=== PATIENT | female | born 1990 | race American Indian/Alaskan Native ===

== ENCOUNTER 2016-12-29 12:34 | Emergency (ER) | payer SELFPAY ==
[2016-12-29 12:47] VITALS: BP 131/93
[2016-12-29 14:44] LABS: Bacteria,Urine 2+ /HPF (Negative); Bilirubin,Urine NEG (Negative); Blood,Urine LG (Negative); Ketones,Urine TR mg/dL (Negative); Leukocyte Esterase,Urine MOD (Negative); Mucus,Urine 3+ /HPF; Nitrite,Urine NEG (Negative); Urobilinogen,Urine < 2.0 mg/dL (<2.0)
[2016-12-29 14:45] LABS: RBC,Urine > 182.0 /HPF (0.0-6.0)
[2016-12-29 14:46] LABS: WBC,Urine > 182.0 /HPF (0.0-6.0)
[2016-12-29] MEDS ORDERED: ZITHROMAX PO ONE (15:09)
[2016-12-29] MEDS ORDERED: MACROBID PO ONE (15:09)
[2016-12-29] MEDS ORDERED: XYLOCAINE 1% MPF 5 mL INFILTRATI ONE (15:09)
[2016-12-29] MEDS ORDERED: ROCEPHIN IM ONE (15:09)
--- NOTE | 2016-12-29 15:14 | Emergency Department Report ---
HPI - General Chief Complaint: Urogenital-Female Time Seen by Provider: 12/29/16 15:08 - HPI HPI: This is a 26-year-old Afro-[place] female presents to the emergency department from home with complaint of burning with urination, frequent urination and some trouble with urination. She also is concerned that she got a call from her boyfriend today saying that he was diagnosed with urethritis and that she could' ve gotten something from him. She denies any history of STDs. She denies any vaginal discharge. She is having some vaginal bleeding but is in the middle of her menstrual cycle. She denies any past medical history. She is not taken anything for symptoms prior to presentation. No recent travel or sick contacts at home. ED Past Medical Hx - Past Medical History Previous Medical History?: No - Surgical History Past Surgical History?: No - Social History Smoking Status: Current Every Day Smoker Substance Use Type: Alcohol, Marijuana - Medications Home Medications: Home Medications Medication Instructions Recorded Confirmed Last Taken Type Albuterol Sulfate [Ventolin HFA] 2 puff IH Q4H PRN 12/29/16 12/29/16 Unknown History Nitrofurantoin [place]/M-Cryst 100 mg PO Q12HR #14 capsule 12/29/16 Unknown Rx [Macrobid CAP] ED Review of Systems ROS: Stated complaint: FREQ URINATION Other details as noted in HPI Comment: All other systems reviewed and negative Constitutional: denies: chills, fever Eyes: denies: eye pain, eye discharge, vision change ENT: denies: ear pain, throat pain Respiratory: denies: cough, shortness of breath, wheezing Cardiovascular: denies: chest pain, palpitations Gastrointestinal: denies: abdominal pain, nausea, diarrhea Genitourinary: urgency, dysuria, frequency. denies: discharge Musculoskeletal: denies: back pain, joint swelling, arthralgia Skin: denies: rash, lesions Neurological: denies: headache, weakness, paresthesias Physical Exam - Physical Exam Vital Signs: Vital Signs 12/29/16 12:43 Temperature 98 F Pulse Rate 96 H Respiratory 18 Rate Blood Pressure 131/93 O2 Sat by Pulse 100 Oximetry Physical Exam: GENERAL: The patient is well-developed well-nourished. HEENT: Normocephalic. Atraumatic. Extraocular motions are intact. Patient has moist mucous membranes. NECK: Supple. Trachea is midline. CHEST/LUNGS: Clear to auscultation. There is no respiratory distress noted. HEART/CARDIOVASCULAR: Regular. There is no tachycardia. There is no gallop rub or murmur. ABDOMEN: Abdomen is soft, nontender. Patient has normal bowel sounds. There is no abdominal distention. SKIN: There is no rash. There is no edema. There is no diaphoresis. NEURO: The patient is awake, alert, and oriented. The patient is cooperative. The patient has no focal neurologic deficits. The patient has normal speech. MUSCULOSKELETAL: There is no tenderness or deformity. There is no limitation range of motion. There is no evidence of acute injury. ED Course Vital Signs 12/29/16 12:43 Temperature 98 F Pulse Rate 96 H Respiratory 18 Rate Blood Pressure 131/93 O2 Sat by Pulse 100 Oximetry ED Medical Decision Making - Medical Decision Making 26-year-old female presents with some dysuria and urinalysis does show a significant urinary tract infection. There is a large amount of hematuria. The patient is also in the midst of her menstrual cycle. The patient denies any vaginal discharge or pelvic pain or lesions but did get a call from her sexual partner saying that he was diagnosed with urethritis. The way she describes it, her partner was tested for gonorrhea and chlamydia. For this reason the patient will be treated with Rocephin and azithromycin to cover her for both gonorrhea and chlamydia. This patient is not having any discharge and is having bleeding from her menstrual cycle, a pelvic exam will not be helpful at this time. She will be empirically treated. - Differential Diagnosis gonorrhea, chlamydia, UTI, Critical Care Time: No Critical care attestation.: If time is entered above; I have spent that time in minutes in the direct care of this critically ill patient, excluding procedure time. ED Disposition Clinical Impression: Possible exposure to STD UTI (urinary tract infection) Qualifiers: Urinary tract infection type: acute cystitis Hematuria presence: with hematuria Qualified Code(s): N30.01 - Acute cystitis with hematuria Disposition: DISCHARGED TO HOME OR SELFCARE Is pt being admited?: No Condition: Stable Instructions: Urinary Tract Infection in Women (ED), Safe Sex (ED) Additional Instructions: Please follow-up with a primary care doctor and [employer] [facility] in the next few days. Return to the emergency department with any worsening of your symptoms or any acute distress. Prescriptions: Nitrofurantoin Hocking/M-Cryst [Macrobid CAP] 100 mg PO Q12HR #14 capsule Referrals: PRIMARY CARE,MD [Primary Care Provider] - 3-5 Days [facility] [Outside] - 3-5 Days Time of Disposition: 15:14
== END 2016-12-29 16:05 | disposition home or self-care (01) ==
LOC: ED 12:34
DX: N30.01 Acute cystitis with hematuria (principal); F17.200 Nicotine dependence, unspecified, uncomplicated; F12.10 Cannabis abuse, uncomplicated
CPT/HCPCS: 81001; 81025; 96372; 99282; J0696

== ENCOUNTER 2021-02-21 05:25 | Emergency (ER) | payer SELFPAY ==
[2021-02-21 05:38] VITALS: BP 157/99
[2021-02-21 07:25] LABS: HCG Qualitative,Urine Negative (Negative)
[2021-02-21 07:35] LABS: Bilirubin,Urine NEG (Negative); Blood,Urine NEG (Negative); Color,Urine Yellow (Yellow); Mucus,Urine FEW /HPF; Protein,Urine <15 mg/dL mg/dL (Negative)
== END 2021-02-21 07:20 | disposition left against medical advice (07) ==
LOC: ED 05:25
DX: N89.8 Other specified noninflammatory disorders of vagina (principal); Z53.21 Procedure and treatment not carried out due to patient leaving prior to being seen by health care provider
CPT/HCPCS: 81001; 81025; 87086